=== PATIENT | male | born 1960 | race Hispanic/Latino ===

== ENCOUNTER 2024-09-14 12:31 | Emergency (ER) | payer BC ==
[2024-09-14] MEDS ORDERED: KETOROLAC 30 MG/ML INJ ONE (12:46)
[2024-09-14] MEDS ORDERED: HYDROCODONE/APAP 10/325 TAB ONE (12:46)
--- NOTE | 2024-09-14 13:15 | RAD REPORT ---
EXAMINATION: XR RIGHT SHOUDLER CLINICAL INDICATION: Male, 63 years old. PAIN RIGHT TECHNIQUE: Multiple views of the right shoulder were obtained. COMPARISON: No prior exam. FINDINGS: Mild AC joint and glenohumeral joint arthritic changes are present. No acute fracture or d islocation seen. No aggressive marrow lesion observed.
--- NOTE | 2024-09-14 13:15 | RAD REPORT ---
EXAMINATION: TWO VIEW CHEST XR CLINICAL INDICATION: PAIN TECHNIQUE: 2 views of the chest was performed. COMPARISON: No prior exam. FINDINGS: The lungs are well inflated and clear. The heart is upper limit of normal in size. No displaced fract ures evident. IMPRESSION: No acute or significant abnormalities.
--- NOTE | 2024-09-14 15:11 | ER ---
Nurse's Notes [facility] Name: Billy Patel Age: 63 yrs Sex: Male : 1960 Arrival Date: 09/14/2024 Time: 12:31 Bed DX3 Private MD: Diagnosis: Fall on same level, unspecified;Sprain of left acromioclavicular joint, initial encounter Presentation: 09/14 12:39 Chief complaint: Patient states: R shoulder pain s/p fall while sandblasting in a huge 1 pipe. Coronavirus screen: Client denies travel out of the [place] in the last 14 days. At this time, the client does not indicate any symptoms associated with coronavirus-19. Ebola Screen: Patient denies travel to an Ebola-affected area in the 21 days before illness onset. Initial Sepsis Screen: Does the patient meet any 2 criteria? No. Patient's initial sepsis screen is negative. Does the patient have a suspected source of infection? No. Patient's initial sepsis screen is negative. Risk Assessment: Do you want to hurt yourself or someone else? Patient reports no desire to harm self or others. Onset of symptoms was September 14, 2024. 12:39 Method Of Arrival: Ambulatory ll1 12:39 Acuity: MICHAEL 3 ll1 Triage Assessment: 12:39 General: Appears uncomfortable, Behavior is calm, cooperative, appropriate for age. ll1 Pain: Complains of pain in R shoulder Quality of pain is described as aching. Musculoskeletal: Reports pain in R shoulder. Injury Description: Bruise sustained to R shoulder. Historical: - Allergies: 12:36 No Known Allergies; ll1 - Immunization history:: Adult Immunizations up to date. - Infectious Disease History:: Denies. - Social history:: Smoking status: Patient denies any tobacco usage or history of. Screenin:36 [facility] ED Fall Risk Assessment (Adult) History of falling in the last 3 months, kb3 including since admission No falls in past 3 months (0 pts) Confusion or Disorientation No (0 pts) Intoxicated or Sedated No (0 pts) Impaired Gait No (0 pts) Mobility Assist Device Used No (0 pt) Altered Elimination No (0 pt) Score/Fall Risk Level 0 - 2 = Low Risk Oriented to surroundings. Abuse screen: Denies threats or abuse. Denies injuries from another. Nutritional screening: No deficits noted. Tuberculosis screening: No symptoms or risk factors identified. Assessment: 15:36 Reassessment: Patient appears in no apparent distress at this time. General: Appears in kb3 no apparent distress. comfortable, Behavior is calm, cooperative. Pain: Complains of pain in posterior aspect of right shoulder and anterior aspect of right shoulder Pain does not radiate. Musculoskeletal: Reports pain in posterior aspect of right shoulder and anterior aspect of right shoulder. Vital Signs: 12:39 Pulse 75; Resp 16; Temp 97.4; Pulse Ox 99% ; Weight 89.36 kg; Height 5 ft. 6 in. ; Pain ll1 8/10; 12:39 Body Mass Index 31.80 (89.36 kg, 167.64 cm) ll1 12:39 Pain Scale: Adult ll1 [place] Coma Score: 15:07 Eye Response: spontaneous(4). Motor Response: obeys commands(6). Verbal Response: santos oriented(5). Total: 15. ED Course: 12:34 Patient arrived in ED. mr 12:36 Arm band placed on. ll1 12:41 Triage completed. ll1 12:41 Yo Cruz MD is Attending Physician. santos 13:09 Shoulder Right (2 View) XRAY In Process Unspecified. EDMS 13:09 Chest Pa And Lat (2 Views) XRAY In Process Unspecified. EDMS 15:10 Vikas Centeno MD is Referral Physician. santos 15:30 Sling applied to right arm. kb3 15:36 Patient has correct armband on for positive identification. Provided Education on: POC, kb3 medications, follow-up with ortho. 15:36 No provider procedures requiring assistance completed. Patient did not have IV access kb3 during this emergency room visit. Administered Medications: 12:50 Drug: Ketorolac IM 30 mg IM once Route: IM; Site: left deltoid; ll1 15:39 Follow up: Response: No adverse reaction; Pain is decreased kb3 12:50 Drug: [place] PO 10 mg-325 mg 1 tabs PO once {Note: pain 8/10 RASS 0.} Route: PO; ll1 15:39 Follow up: Response: No adverse reaction; Pain is decreased kb3 Medication: 15:36 VIS not applicable for this client. kb3 Outcome: 15:11 Discharge ordered by . santos 15:39 Discharged to home ambulatory, kb3 15:39 Condition: improved 15:39 Discharge instructions given to patient, Instructed on discharge instructions, follow up and referral plans. medication usage, Demonstrated understanding of instructions, follow-up care, medications, Prescriptions given X 2, 15:40 Patient left the ED. kb3 Signatures: Dispatcher [employer] EDMS Yo Cruz MD MD cha Rivera, Mary, Reg Reg mr Adrian Suarez, RN RN ll1 Donna Bhardwaj, ALVIN RN kb3
--- NOTE | 2024-09-14 15:11 | EDPHYS ---
Physician Documentation [facility] Name: Billy Patel Age: 63 yrs Sex: Male : 1960 Arrival Date: 09/14/2024 Time: 12:31 Bed DX3 Private MD: ED Physician Yo Cruz HPI: 09/14 15:05 This 63 yrs old Male presents to ER via Ambulatory with complaints of Fall santos Injury, Shoulder Pain. 15:05 Details of fall: The patient fell from an upright position, while standing, while santos walking. Onset: The symptoms/episode began/occurred 1 day(s) ago. Associated injuries: The patient sustained anterior aspect of right shoulder and posterior aspect of right shoulder, decreased range of motion. Severity of symptoms: At their worst the symptoms were moderate, in the emergency department the symptoms are unchanged. The patient has not experienced similar symptoms in the past. Historical: - Allergies: 12:36 No Known Allergies; ll1 - Immunization history:: Adult Immunizations up to date. - Infectious Disease History:: Denies. - Social history:: Smoking status: Patient denies any tobacco usage or history of. ROS: 15:07 Constitutional: Negative for fever, chills, and weight loss, Eyes: Negative for injury, santos pain, redness, and discharge, ENT: Negative for injury, pain, and discharge, Neck: Negative for injury, pain, and swelling, Cardiovascular: Negative for chest pain, palpitations, and edema, Respiratory: Negative for shortness of breath, cough, wheezing, and pleuritic chest pain, Abdomen/GI: Negative for abdominal pain, nausea, vomiting, diarrhea, and constipation, Back: Negative for injury and pain, : Negative for injury, bleeding, discharge, and swelling, Skin: Negative for injury, rash, and discoloration, Neuro: Negative for headache, weakness, numbness, tingling, and seizure, Psych: Negative for depression, anxiety, suicide ideation, homicidal ideation, and hallucinations, Allergy/Immunology: Negative for hives, rash, and allergies, Endocrine: Negative for neck swelling, polydipsia, polyuria, polyphagia, and marked weight changes, Hematologic/Lymphatic: Negative for swollen nodes, abnormal bleeding, and unusual bruising, 15:07 MS/extremity: Positive for injury or acute deformity, decreased range of motion, pain, swelling, of the anterior aspect of right shoulder and posterior aspect of right shoulder, Exam: 15:07 Constitutional: This is a well developed, well nourished patient who is awake, alert, santos and in no acute distress. Head/Face: Normocephalic, atraumatic. Eyes: Pupils equal round and reactive to light, extra-ocular motions intact. Lids and lashes normal. Conjunctiva and sclera are non-icteric and not injected. Cornea within normal limits. Periorbital areas with no swelling, redness, or edema. ENT: Nares patent. No nasal discharge, no septal abnormalities noted. Tympanic membranes are normal and external auditory canals are clear. Oropharynx with no redness, swelling, or masses, exudates, or evidence of obstruction, uvula midline. Mucous membranes moist. Neck: Trachea midline, no thyromegaly or masses palpated, and no cervical lymphadenopathy. Supple, full range of motion without nuchal rigidity, or vertebral point tenderness. No Meningismus. Chest/axilla: Normal chest wall appearance and motion. Nontender with no deformity. No lesions are appreciated. Cardiovascular: Regular rate and rhythm with a normal S1 and S2. No gallops, murmurs, or rubs. Normal PMI, no JVD. No pulse deficits. Respiratory: Lungs have equal breath sounds bilaterally, clear to auscultation and percussion. No rales, rhonchi or wheezes noted. No increased work of breathing, no retractions or nasal flaring. Abdomen/GI: Soft, non-tender, with normal bowel sounds. No distension or tympany. No guarding or rebound. No evidence of tenderness throughout. Back: No spinal tenderness. No costovertebral tenderness. Full range of motion. Male : Normal genitalia with no discharge or lesions. Skin: Warm, dry with normal turgor. Normal color with no rashes, no lesions, and no evidence of cellulitis. Neuro: Awake and alert, GCS 15, oriented to person, place, time, and situation. Cranial nerves II-XII grossly intact. Motor strength 5/5 in all extremities. Sensory grossly intact. Cerebellar exam normal. Normal gait. Psych: Awake, alert, with orientation to person, place and time. Behavior, mood, and affect are within normal limits. 15:07 Musculoskeletal/extremity: ROM: limited active range of motion due to pain, limited passive range of motion due to pain, in the right arm, Circulation is intact in all extremities. Sensation intact. Compartment Syndrome exam of affected extremity: is normal. DVT Exam: No signs of deep vein thrombosis. no pain, no swelling, no tenderness, negative Homans' sign noted on exam, no appreciated bluish discoloration, no erythema, no increased warmth, Vital Signs: 12:39 Pulse 75; Resp 16; Temp 97.4; Pulse Ox 99% ; Weight 89.36 kg; Height 5 ft. 6 in. ; Pain ll1 8/10; 12:39 Body Mass Index 31.80 (89.36 kg, 167.64 cm) ll1 12:39 Pain Scale: Adult ll1 [place] Coma Score: 15:07 Eye Response: spontaneous(4). Motor Response: obeys commands(6). Verbal Response: santos oriented(5). Total: 15. MDM: 12:42 Medical Screening Exam initiated santos 15:08 Differential diagnosis: Anterior dislocation with fracture, Anterior dislocation santos without fracture, Posterior dislocation with fracture, Posterior dislocation without fracture, humeral head fracture, DJD, tendonitis. Differential diagnosis: contusion, fracture, sprain, strain. Data reviewed: vital signs, nurses notes, radiologic studies, plain films. Consideration of Admission/Observation Escalation of care including admission/observation considered. I considered the following discharge prescriptions or medication management in the emergency department Medications were administered in the Emergency Department. See MAR. Independent interpretation of the following test(s) in the Emergency Department X-Ray: My interpretation is cxr , right shoulder. Test considered but Not performed: CT: no ct shoulder. Historians other than the Patient: pt well informed. Care significantly affected by the following chronic conditions: none. 09/14 12:43 Order name: Shoulder Right (2 View) XRAY; Complete Time: 15:03 [facility] 09/14 12:43 Order name: Chest Pa And Lat (2 Views) XRAY; Complete Time: 15:03 [facility] 09/14 12:43 Order name: Ice pack; Complete Time: 12:53 [facility] 09/14 12:43 Order name: Sling; Complete Time: 15:01 [facility] Administered Medications: 12:50 Drug: Ketorolac IM 30 mg IM once Route: IM; Site: left deltoid; ll1 15:39 Follow up: Response: No adverse reaction; Pain is decreased kb3 12:50 Drug: [place] PO 10 mg-325 mg 1 tabs PO once {Note: pain 8/10 RASS 0.} Route: PO; ll1 15:39 Follow up: Response: No adverse reaction; Pain is decreased kb3 Disposition Summary: 09/14/24 15:11 Discharge Ordered Notes: Location: Home [facility] Problem: new santos Symptoms: have improved santos Condition: Stable santos Diagnosis - Fall on same level, unspecified santos - Sprain of left acromioclavicular joint, initial encounter santos Followup: santos - With: Private Physician - When: 2 - 3 days - Reason: Recheck today's complaints, Continuance of care, Re-evaluation by your physician Followup: santos - With: Vikas Centeno MD - When: 2 - 3 days - Reason: Recheck today's complaints, Continuance of care, Re-evaluation by your physician Discharge Instructions: - Discharge Summary Sheet [facility] - Fall Prevention in the Home, Adult [facility] - RICE Therapy for Routine Care of Injuries santos - Acromioclavicular Separation santos - RICE Therapy for Routine Care of Injuries, [id number] [facility] Forms: - Medication Reconciliation Form [facility] - Antibiotic Education santos - Prescription Opioid Use santos - Patient Portal Instructions [facility] - Leadership Thank You Letter [facility] Prescriptions: - Diclofenac Sodium 75 mg Oral tablet, delayed release (enteric coated) - take 1 tablet ORAL route 2 times per day; 20 tablet; Refills: 0, Product [facility] Selection Permitted - Tylenol-Codeine #3 300mg-30mg Oral tablet - take 2 tablets ORAL route every 6 hours As needed; 20 tablet; Refills: 0, [facility] Product Selection Permitted Signatures: Dispatcher [employer] Yo Grant MD MD cha Lewis, Lynsay, RN RN ll1 Donna Bhardwaj, RN RN kb3
[2024-09-14 16:13] VITALS: TEMP 97.4; O2SAT 99
== END 2024-09-14 15:40 | disposition home or self-care (01) ==
LOC: ER 12:31
DX: S43.51XA Sprain of right acromioclavicular joint, initial encounter (principal); W18.30XA Fall on same level, unspecified, initial encounter
CPT/HCPCS: 71046; 96372; 99284